=== PATIENT | female | born 1955 | race Caucasian/White ===

== ENCOUNTER 2017-09-15 06:10 | Observation (INO) | payer OTHER ==
[~2017-09-15] VITALS: Ht 170.2 cm; Wt 96.3 kg
[2017-09-15] VITALS (10 sets, daily range): BP systolic 138–214; BP diastolic 71–93; PULSE 92–111; RESP 18–24; TEMP 98.2–99.5; O2SAT 94–98
[2017-09-15] MEDS ORDERED: SODIUM CHLOR 0.9% 1000 ML INJ 1,000 ML IV SCH (07:12)
[2017-09-15] MEDS ORDERED: ONDANSETRON HCL 4 MG/2 ML VIAL IVP ONE (07:15)
[2017-09-15] MEDS ORDERED: SODIUM CHLORIDE 0.9% FLUSH 10 ML FLUSH IV FLUSH PRN ×2 (07:15→10:45)
[2017-09-15] MEDS ORDERED: ONDANSETRON HCL 4 MG/2 ML VIAL IV PUSH ONE ×2 (07:15→07:45)
[2017-09-15] MEDS ORDERED: SODIUM CHLOR 0.9% 1000 ML INJ 1,000 ML IV ONE (07:15)
[2017-09-15 07:33] LABS: AUTOMATED NEUTROPHIL # 10.2 TH/MM3 (1.8-7.7); BASOPHIL # 0.1 TH/MM3 (0-0.2); BASOPHIL % 1.3 % (0.0-2.0); EOSINOPHIL % 0.1 % (0.0-4.0); HEMATOCRIT 43.6 % (35.0-46.0); HEMO FLAGS DIFF FINAL; LYMPHOCYTE # 0.8 TH/MM3 (1.0-4.8); MEAN CELL VOLUME 90.8 FL (80.0-100.0); MEAN CORPUSCULAR HEMOGLOBIN 30.4 PG (27.0-34.0); MEAN CORPUSCULAR HGB CONC 33.4 % (32.0-36.0); MONO % 2.2 % (0.0-8.0); NEUT % 89.4 % (16.0-70.0); PLATELET COUNT 291 TH/MM3 (150-450); RED CELL DISTRIBUTION WIDTH 12.8 % (11.6-17.2); WHITE BLOOD COUNT 11.4 TH/MM3 (4.0-11.0)
[2017-09-15 07:40] LABS: CHLORIDE 101 MEQ/L (98-107); POTASSIUM 3.9 MEQ/L (3.5-5.1); SODIUM (NA) 138 MEQ/L (136-145)
[2017-09-15 07:44] LABS: ANION GAP 9 MEQ/L (5-15); BICARBONATE 27.7 MEQ/L (21.0-32.0)
[2017-09-15 07:45] LABS: BLOOD UREA NITROGEN 17 MG/DL (7-18)
--- NOTE | 2017-09-15 07:46 | PD ---
HPI Chief Complaint: Abdominal Pain Time Seen by Provider: 07:12 Travel History International Travel<30 days: No Contact w/Intl Traveler<30days: No Traveled to known affect area: No History of Present Illness HPI 62-year-old female presents with nonbloody emesis and diffuse abdominal pain. She denies recurrent history of this. She denies other sick contacts. She states her last bowel movement was last night at 11 PM when her symptoms started and was normal. She states she has not seen a physician in 10 years and her last blood pressure she remembers was in the 140s. She states her last physician and she just hasn't set one up yet. Quality is pressure. Severity is mild. Location is diffuse. She denies specific modifying factors. She denies specific migration of the pain. PFS Past Medical History Medical History: Denies Significant Hx Tetanus Vaccination: > 5 Years Influenza Vaccination: Yes ?: Not Menopausal: Yes : 0 Past Surgical History Gynecologic Surgery: Yes (BREAST IMPLANTS: 1983) Social History Alcohol Use: Yes ("GLASS OF WINE ONCE IN AWHILE") Tobacco Use: No Substance Use: No Allergies-Medications (Allergen,Severity, Reaction): Coded Allergies: Penicillins (Verified Allergy, Severe, Hives, 09/15/17) Reported Meds & Prescriptions Reported Meds & Active Scripts Active No Active Prescriptions or Reported Medications Review of Systems Except as stated in HPI: all other systems reviewed are Neg Physical Exam Narrative GENERAL: Well-nourished, well-developed patient. Well-appearing SKIN: Warm and dry. HEAD: Normocephalic and atraumatic. EYES: No injection or drainage. ENT: No nasal drainage noted. NECK: Supple, trachea midline. CARDIOVASCULAR: Regular rate and rhythm RESPIRATORY: Breath sounds equal bilaterally. No accessory muscle use. GASTROINTESTINAL: Abdomen soft, non-tender, nondistended. EXTREMITIES: No edema. BACK: Nontender without obvious deformity. NEUROLOGICAL: Awake and alert. Motor and sensory grossly within normal limits. Normal speech. Data Data Last Documented VS Vital Signs Date Time Temp Pulse Resp B/P (MAP) Pulse Ox O2 Delivery O2 Flow Rate FiO2 09/15/17 09:04 107 18 185/78 (113) 98 Room Air 09/15/17 07:32 98.2 Orders Orders Complete Blood Count With Diff (09/15/17 07:12) Comprehensive Metabolic Panel (09/15/17 07:12) Lipase (09/15/17 07:12) Urinalysis - C+S If Indicated (09/15/17 07:12) Ct Abd/Pel W Iv Contrast(Rout) (09/15/17 07:12) Iv Access Insert/Monitor (09/15/17 07:12) Ecg Monitoring (09/15/17 07:12) Oximetry (09/15/17 07:12) NPO (09/15/17 07:12) Ondansetron Inj (Zofran Inj) (09/15/17 07:15) Sodium Chlor 0.9% 1000 Ml Inj (Ns 1000 M (09/15/17 07:12) Sodium Chloride 0.9% Flush (Ns Flush) (09/15/17 07:15) Electrocardiogram (09/15/17 07:12) Ondansetron Inj (Zofran Inj) (09/15/17 07:15) Sodium Chlor 0.9% 1000 Ml Inj (Ns 1000 M (09/15/17 07:15) Ondansetron Inj (Zofran Inj) (09/15/17 07:45) Iohexol 350 Inj (Omnipaque 350 Inj) (09/15/17 08:12) Urine Culture (09/15/17 08:25) Ciprofloxacin 400 Mg Premix (Cipro 400 M (09/15/17 09:45) Metronidazole 500 Mg Inj (Flagyl 500 Mg (09/15/17 09:45) Admit Order (Ed Use Only) (09/15/17 10:33) Labs Laboratory Tests Test 09/15/17 07:25 09/15/17 08:25 White Blood Count 11.4 TH/MM3 Red Blood Count 4.80 MIL/MM3 Hemoglobin 14.6 GM/DL Hematocrit 43.6 % Mean Corpuscular Volume 90.8 FL Mean Corpuscular Hemoglobin 30.4 PG Mean Corpuscular Hemoglobin Concent 33.4 % Red Cell Distribution Width 12.8 % Platelet Count 291 TH/MM3 Mean Platelet Volume 7.7 FL Neutrophils (%) (Auto) 89.4 % Lymphocytes (%) (Auto) 7.0 % Monocytes (%) (Auto) 2.2 % Eosinophils (%) (Auto) 0.1 % Basophils (%) (Auto) 1.3 % Neutrophils # (Auto) 10.2 TH/MM3 Lymphocytes # (Auto) 0.8 TH/MM3 Monocytes # (Auto) 0.3 TH/MM3 Eosinophils # (Auto) 0.0 TH/MM3 Basophils # (Auto) 0.1 TH/MM3 CBC Comment DIFF FINAL Differential Comment Blood Urea Nitrogen 17 MG/DL Creatinine 0.74 MG/DL Random Glucose 183 MG/DL Total Protein 8.2 GM/DL Albumin 4.1 GM/DL Calcium Level 9.2 MG/DL Alkaline Phosphatase 65 U/L Aspartate Amino Transf (AST/SGOT) 16 U/L Alanine Aminotransferase (ALT/SGPT) 21 U/L Total Bilirubin 0.6 MG/DL Sodium Level 138 MEQ/L Potassium Level 3.9 MEQ/L Chloride Level 101 MEQ/L Carbon Dioxide Level 27.7 MEQ/L Anion Gap 9 MEQ/L Estimat Glomerular Filtration Rate 80 ML/MIN Lipase 129 U/L Urine Collection Type CLEAN CATCH Urine Color YELLOW Urine Turbidity SLIGHT Urine pH 6.5 Urine Specific [place] 1.010 Urine Protein NEG mg/dL Urine Glucose (UA) 100 mg/dL Urine Ketones 40 mg/dL Urine Occult Blood NEG Urine Nitrite NEG Urine Bilirubin NEG Urine Leukocyte Esterase MOD Urine RBC 0-3 /hpf Urine WBC 25-49 /hpf Urine WBC Clumps FEW Urine Squamous Epithelial Cells 6-8 /hpf Urine Bacteria OCC /hpf Microscopic Urinalysis Comment CULTURE INDICATED Urine Collection Time 08:25 [facility] Medical Decision Making Medical Screen Exam Complete: Yes Emergency Medical Condition: Yes Medical Record Reviewed: Yes (past history confirmed) Interpretation(s) EKG is sinus rhythm at [address] segment elevation or depression or consecutive T-wave inversion there is a little bit of wandering baseline which is likely from patient's emesis CBC & BMP Diagram 09/15/17 07:25 Total Protein 8.2, Albumin 4.1, Calcium Level 9.2, Alkaline Phosphatase 65, Aspartate Amino Transf (AST/SGOT) 16, Alanine Aminotransferase (ALT/SGPT) 21, Total Bilirubin 0.6 Last 24 hours Impressions Abdomen/Pelvis CT 09/15/17 0712 Signed Impressions: Service Date/Time: Friday, September 15, 2017 08:07 - CONCLUSION: 1. Acute cholecystitis. 2. Hepatic and left renal cysts. Nelson Cardenas Jr., MD Differential Diagnosis Gastroenteritis, cholecystitis, pancreatitis, UTI, kidney stone.... Narrative Course Will check blood work, urinalysis, CT scan abdominal pelvis and dose with IV fluids and Zofran and reevaluate ed workup with cholecystitis. Patient updated and will discuss with general surgery. Given ciprofloxacin and Flagyl given penicillin allergy Physician Communication Physician Communication dr roman will see patient dr roman states to admit to his service in [place] after seeing patient Diagnosis Primary Impression: Cholecystitis Additional Impression: Elevated blood pressure reading Admitting Information Admitting Physician Requests: Observation Scripts No Active Prescriptions or Reported Meds Cindy Nagel MD Sep 15, 2017 07:46
[2017-09-15 07:47] LABS: ALT (GPT) 21 U/L (10-53); AST (GOT) 16 U/L (15-37); GLOMERULAR FILTRATION RATE 80 ML/MIN (>89)
[2017-09-15 07:49] LABS: TOTAL BILIRUBIN ADULT 0.6 MG/DL (0.2-1.0)
[2017-09-15 07:50] LABS: ALKALINE PHOSPHATASE 65 U/L (45-117)
[2017-09-15] MEDS ORDERED: IOHEXOL 350 MG/ML 10 ML VIAL (for RAD DIAG) IVCONTRAST ONE (08:12)
[2017-09-15 08:31] LABS: BLOOD, URINE NEG (NEG); GLUCOSE,URINE 100 mg/dL (NEG); KETONE, URINE 40 mg/dL (NEG); NITRITE,URINE NEG (NEG); PH, URINE 6.5 (5.0-8.5)
[2017-09-15 08:38] LABS: METHOD OF COLLECTION CLEAN CATCH; URINE COLOR YELLOW (YELLW/STRAW)
[2017-09-15 08:39] LABS: BACTERIA, URINE OCC /hpf; COMMENT (UR) CULTURE INDICATED; CULTURE IF INDICATED CULTURE INDICATED; RBC, URINE 0-3 /hpf (0-3)
--- NOTE | 2017-09-15 09:08 | RADRPT ---
EXAM DATE/TIME: 09/15/2017 08:07 [facility] COMPARISON: No previous studies available for comparison. INDICATIONS : Upper abdominal pain with nausea and vomiting. IV CONTRAST: 95 cc Omnipaque 350 (iohexol) IV ORAL CONTRAST: No oral contrast ingested. RADIATION DOSE: 17.52 CTDIvol (mGy) MEDICAL HISTORY : None SURGICAL HISTORY : None. ENCOUNTER: Initial ACUITY: 2 days PAIN SCALE: 5/10 LOCATION: upper quadrant TECHNIQUE: Volumetric scanning of the abdomen and pelvis was performed. Using automated exposure control and ad justment of the mA and/or kV according to patient size, radiation dose was kept as low as reasonably achievable to obtain optimal diagnostic quality images. DICOM format image data is available electro nically for review and comparison. FINDINGS: LOWER LUNGS: A calcified granuloma is seen within the left lung base. Remaining lungs bases are clear. LIVER: Multiple hepatic cysts are observed. The largest measures 2.8 cm within the right lobe. Multiple calc ified gallstones are seen. The gallbladder wall is thickened and there is pericholecystic fluid. No i ntrahepatic biliary dilatation. Portal vein is patent. SPLEEN: Normal size without lesion. PANCREAS: Within normal limits. KIDNEYS: Normal in size and shape. There is no mass, stone or hydronephrosis. A 3.1 cm cyst involving the lef t kidney. ADRENAL GLANDS: Within normal limits. VASCULAR: There is no aortic aneurysm. BOWEL/MESENTERY: The stomach, small bowel, and colon demonstrate no acute abnormality. There is no free intraperitone al air or fluid. ABDOMINAL WALL: Within normal limits. RETROPERITONEUM: There is no lymphadenopathy. BLADDER: No wall thickening or mass. REPRODUCTIVE: Within normal limits. INGUINAL: There is no lymphadenopathy or hernia. MUSCULOSKELETAL: Within normal limits for patient age. CONCLUSION: 1. Acute cholecystitis. 2. Hepatic and left renal cysts. Nelson Cardenas Jr., MD on September 15, 2017 at 8:59 Board Certified Radiologist. This report was verified electronically.
[2017-09-15] MEDS ORDERED: metroNIDAZOLE 500 MG INJ 100 ML IV ONE (09:45)
[2017-09-15] MEDS ORDERED: CIPROFLOXACIN 400 MG PREMIX 200 ML IV ONE (09:45)
--- NOTE | 2017-09-15 10:39 | HHI.HP ---
HPI Primary Care Physician Ced Hoffman MD Admission Diagnosis cholecystitis Past Family Social History Allergies: Coded Allergies: Penicillins (Verified Allergy, Severe, Hives, 09/15/17) Active Ordered Medications Current Medications Medications (Trade) Dose Ordered Sig/Farrah Route Start Time Stop Time Status Last Admin (NS Flush) 2 ml UNSCH PRN IV FLUSH 09/15/17 07:15 09/15/17 07:29 Ciprofloxacin/ Dextrose 200 ml @ 200 mls/hr ONCE ONCE IV 09/15/17 09:45 09/15/17 10:44 09/15/17 09:57 Metronidazole 100 ml @ 100 mls/hr ONCE ONCE IV 09/15/17 09:45 09/15/17 10:44 Physical Exam Vital Signs Vital Signs Date Time Temp Pulse Resp B/P (MAP) Pulse Ox O2 Delivery O2 Flow Rate FiO2 09/15/17 09:04 107 18 185/78 (113) 98 Room Air 09/15/17 07:32 98.2 92 20 214/90 (131) 95 Room Air 09/15/17 07:15 96 Room Air 09/15/17 06:41 98.3 108 24 205/93 (130) 98 09/15/17 06:28 98.3 108 24 205/93 (130) 98 Laboratory Laboratory Tests Test 09/15/17 07:25 09/15/17 08:25 White Blood Count 11.4 Red Blood Count 4.80 Hemoglobin 14.6 Hematocrit 43.6 Mean Corpuscular Volume 90.8 Mean Corpuscular Hemoglobin 30.4 Mean Corpuscular Hemoglobin Concent 33.4 Red Cell Distribution Width 12.8 Platelet Count 291 Mean Platelet Volume 7.7 Neutrophils (%) (Auto) 89.4 Lymphocytes (%) (Auto) 7.0 Monocytes (%) (Auto) 2.2 Eosinophils (%) (Auto) 0.1 Basophils (%) (Auto) 1.3 Neutrophils # (Auto) 10.2 Lymphocytes # (Auto) 0.8 Monocytes # (Auto) 0.3 Eosinophils # (Auto) 0.0 Basophils # (Auto) 0.1 CBC Comment DIFF FINAL Differential Comment Blood Urea Nitrogen 17 Creatinine 0.74 Random Glucose 183 Total Protein 8.2 Albumin 4.1 Calcium Level 9.2 Alkaline Phosphatase 65 Aspartate Amino Transf (AST/SGOT) 16 Alanine Aminotransferase (ALT/SGPT) 21 Total Bilirubin 0.6 Sodium Level 138 Potassium Level 3.9 Chloride Level 101 Carbon Dioxide Level 27.7 Anion Gap 9 Estimat Glomerular Filtration Rate 80 Lipase 129 Urine Collection Type CLEAN CATCH Urine Color YELLOW Urine Turbidity SLIGHT Urine pH 6.5 Urine Specific [place] 1.010 Urine Protein NEG Urine Glucose (UA) 100 Urine Ketones 40 Urine Occult Blood NEG Urine Nitrite NEG Urine Bilirubin NEG Urine Leukocyte Esterase MOD Urine RBC 0-3 Urine WBC 25-49 Urine WBC Clumps FEW Urine Squamous Epithelial Cells 6-8 Urine Bacteria OCC Microscopic Urinalysis Comment CULTURE INDICATED Urine Collection Time 08:25 Date/Time Source Procedure Growth Status 09/15/17 08:25 Urine Clean Catch Urine Culture Pending Received Result Diagram: 09/15/17 0725 09/15/17 0725 Caprini VTE Risk Assessment Caprini Risk Assessment Model Point Value = 1 Point Value = 2 Point Value = 3 Point Value = 5 Age 41-60 Minor surgery BMI > 25 kg/m2 Swollen legs Varicose veins or History of unexplained or recurrent spontaneous Oral contraceptives or hormone replacement Sepsis (< 1 month) Serious lung disease, including pneumonia (< 1 month) Abnormal pulmonary function Acute myocardial infarction Congestive heart failure (< 1 month) History of inflammatory bowel disease Medical patient at bed rest Age 61-74 Arthroscopic surgery Major open surgery (> 45 min) Laparoscopic surgery (> 45 min) Malignancy Confined to bed (> 72 hours) Immobilizing plaster cast Central venous access Age >= 75 History of VTE Family history of VTE Factor V Leiden Prothrombin 29120G Lupus anticoagulant Anticardiolipin antibodies Elevated serum homocysteine Heparin-induced thrombocytopenia Other congenital or acquired thrombophilia Stroke (< 1 month) Elective arthroplasty Hip, pelvis, or leg fracture Acute spinal cord injury (< 1 month) Prophylaxis Regimen Total Risk Factor Score Risk Level Prophylaxis Regimen 0-1 Low Early ambulation 2 Moderate Order ONE of the following: *Sequential Compression Device (SCD) *Heparin 5000 units SQ BID 3-4 Higher Order ONE of the following medications: *Heparin 5000 units SQ TID *Enoxaparin/Lovenox 40 mg SQ daily (WT < 150 kg, CrCl > 30 mL/min) *Enoxaparin/Lovenox 30 mg SQ daily (WT < 150 kg, CrCl > 10-29 mL/min) *Enoxaparin/Lovenox 30 mg SQ BID (WT < 150 kg, CrCl > 30 mL/min) AND/OR *Sequential Compression Device (SCD) 5 or more Highest Order ONE of the following medications: *Heparin 5000 units SQ TID (Preferred with Epidurals) *Enoxaparin/Lovenox 40 mg SQ daily (WT < 150 kg, CrCl > 30 mL/min) *Enoxaparin/Lovenox 30 mg SQ daily (WT < 150 kg, CrCl > 10-29 mL/min) *Enoxaparin/Lovenox 30 mg SQ BID (WT < 150 kg, CrCl > 30 mL/min) AND *Sequential Compression Device (SCD) Assessment and Plan Assessment and Plan 62 yo with acute cholecystitis. Plan lap zachary tomorrow 7am. Severe untreated HTN, probably partially pain related but she has not seen physician for ten years. Kimo Dominique MD Sep 15, 2017 10:39
[2017-09-15] MEDS ORDERED: MORPHINE SULFATE 4 MG/ML INJ IV PUSH PRN ×2 (10:45)
[2017-09-15] MEDS ORDERED: ONDANSETRON HCL 4 MG/2 ML VIAL IV PUSH PRN (10:45)
--- NOTE | 2017-09-15 11:36 | MH ---
cc: YESSICA ZAVALA MD DATE OF ADMISSION 09/15/2017 CHIEF COMPLAINT Abdominal pain HISTORY OF PRESENT ILLNESS This is a 62-year-old female who developed severe upper abdominal discomfort diffusely last night. She had nausea and belching and also emesis. She has not specifically had this pain in the past, but says she has had some issues with indigestion recently. She has not seen a physician in 10 years and her blood pressure is quite elevated. PAST MEDICAL HISTORY None PAST SURGICAL HISTORY Breast implants ALLERGIES PENICILLIN SOCIAL HISTORY Occasional wine. No tobacco or drug use. FAMILY HISTORY Noncontributory REVIEW OF SYSTEMS A 10-point review of systems negative except as mentioned in the HPI. PHYSICAL EXAMINATION GENERAL: An overweight female, alert and oriented in no distress. VITALS: Temperature 98.2, heart rate 88, respirations 18, blood pressure 176/81. HEAD: Normocephalic, atraumatic. EYES: Pupils equal, reactive to light bilaterally. No scleral icterus. ENT: Moist oral mucosa. LUNGS: Clear to auscultation bilaterally. No wheezing or rhonchi. CARDIOVASCULAR: Sinus tachycardia. ABDOMEN: Soft, nondistended. Moderate right upper quadrant tenderness to palpation. Negative Bolton's sign. EXTREMITIES: No cyanosis or edema. SKIN: Warm, dry and non-jaundiced. LABORATORY DATA White blood count 11. LFTs normal. IMAGING STUDIES CT of the abdomen and pelvis shows acute cholecystitis. ASSESSMENT/PLAN This is a 62-year-old female with 12 hours of upper abdominal pain and an evaluation consistent with acute cholecystitis. She is also significantly hypertensive. I have recommended laparoscopic cholecystectomy, possible open possible intraoperative cholangiogram. 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 Also, we will consult the hospitalist for her uncontrolled untreated hypertension. MD EZEQUIEL Aviles/LESLEY /11:19 AM /11:27 AM
[2017-09-15] MEDS: D5-1/2 NS + KCL 20 MEQ INJ 1,000 ML IV SCH ×2 (13:51→20:35)
[2017-09-15] MEDS ORDERED: ENALAPRILAT 1.25 MG/ML VIAL IV PUSH PRN (14:15)
--- NOTE | 2017-09-15 16:37 | EKG ---
Date Performed: 09/15/2017 Time Performed: 07:19:11 PTAGE: 62 years EKG: Sinus rhythm POSSIBLE LEFT ATRIAL ENLARGEMENT BORDERLINE ECG NO PREVIOUS TRACING DOCTOR: Franklin Carter Interpretating Date/Time 09/15/2017 16:36:33
[2017-09-15] MEDS: LISINOPRIL 5 MG TAB PO SCH (18:20)
--- NOTE | 2017-09-15 19:36 | MB ---
cc: VINNY TOPETE DATE OF CONSULTATION: 09/15/2017 REASON FOR CONSULTATION: Hypertension. REQUESTING PHYSICIAN Dr. Kimo Dominique HISTORY OF PRESENT ILLNESS: The patient is a 52 year-old female who presented to the emergency room with nausea and vomiting of one evening's duration. She said this had been preceded by episodes of reflux and some abdominal discomfort across her upper abdomen. In the emergency room, imaging studies were done showing gallbladder wall thickening with pericholecystic fluid. The patient was admitted by surgery and is to undergo cholecystectomy laparoscopically in the morning for acute cholecystitis. When she presented to the emergency room her blood pressure was 205/93, documented at triage with a pulse of 108. Subsequently her blood pressure remained elevated until approximately mid morning when she settled out on the floor and her blood pressure came down to 146/79. She did not receive any antihypertensives during this period of time. She tells me that she has never had a history of hypertension. Her blood pressure has always been as she knows in the 140s. She last saw her physician ten years ago. At that time when she would go into her doctor's office, her blood pressure would be mildly elevated and her heart rate would sometimes be a little elevated as well, but after sitting down and calming herself, it invariably came down. She does tell me she is anxious when she thinks about the surgery but she tries not to stop and think about it too much. She knows that it needs to be done. PAST MEDICAL HISTORY: Unremarkable. PAST SURGICAL HISTORY: Breast implants. ALLERGIES PENICILLIN. It causes a rash. MEDICATIONS: She really does not take any medications. HABITS: She will occasionally have a rare glass of wine. She does not smoke. SOCIAL HISTORY: She is retired. She is . She and her moved down from [place] ten years ago. REVIEW OF SYSTEMS She denies any chest pain, palpitations, no headaches. Presently her abdominal discomfort is improved. She has not had any more nausea or emesis. She has had no diarrhea. She is voiding well. She denies any edema but she does say that her ankles and legs have always been somewhat thick. LABORATORY DATA: White count 11.4, hemoglobin 14.6, hematocrit of 43.6. Platelet count of 291. Sodium was 138, potassium 3.9, BUN 17, creatinine 0.74, GFR was 80, random glucose was 183. LFTs were normal as well as her lipase. Her urine was significant for glucose and ketones. She does have moderate leukocyte esterase with occasional bacteria. Culture is pending. CT scan showed acute cholecystitis with hepatic and left renal cyst. EKG: Sinus rhythm with possible left atrial enlargement. ASSESSMENT/PLAN: The patient is a 62 year-old female who presented to the hospital with acute cholecystitis, undergoing surgery tomorrow currently. Hemodynamically she is stable. Her blood pressure was elevated on presentation, has subsequently come down, as she has become more comfortable. Her last blood pressure was 151/77. At this point I have ordered some p.r.n. Vasotec. I will put her on a low dose of lisinopril. Continue to monitor her blood pressure. For her UTI, she has been started on antibiotics already and she is on Cipro, metronidazole as well. Will await her cultures. She did have some glucose in her urine. I will go ahead and repeat her BMP fasting in the morning, and actually check a hemoglobin A1c. She will need to establish with a primary care physician once she is discharged from the hospital. MD MILLIE Cruz/KOKO /6:23 PM /7:10 PM
[2017-09-15] MEDS: metroNIDAZOLE 500 MG INJ 100 ML IV SCH (20:45)
[2017-09-15] MEDS: SODIUM CHLORIDE 0.9% FLUSH 10 ML FLUSH IV FLUSH SCH (20:50)
[2017-09-15 21:59] LABS: HEMOGLOBIN A1a 0.9 %; HEMOGLOBIN A1b 0.8 %; HEMOGLOBIN Ao 85.5 %; HEMOGLOBIN F 0.9 %; HEMOGLOBIN LA1C 2.3 %; HEMOGLOBIN P3 3.8 %
[2017-09-15] MEDS ORDERED: CIPROFLOXACIN 400 MG PREMIX 200 ML IV SCH (22:00)
[2017-09-16] VITALS: BP 133/66; PULSE 100; RESP 18; TEMP 98.3; O2SAT 97
[2017-09-16] MEDS: D5-1/2 NS + KCL 20 MEQ INJ 1,000 ML IV SCH (03:45)
[2017-09-16] MEDS: metroNIDAZOLE 500 MG INJ 100 ML IV SCH (03:45)
[2017-09-16] MEDS ORDERED: BUPIVACAINE/EPINEPHRINE 0.5% 50 ML VIAL ONE (06:13)
[2017-09-16 06:20] VITALS: BP 127/60; PULSE 101; RESP 18; TEMP 98.6; O2SAT 96
[2017-09-16 06:44] LABS: POTASSIUM 3.5 MEQ/L (3.5-5.1)
[2017-09-16] MEDS ORDERED: POVIDONE IODINE 5% (ANTISEPSIS KIT) 4 APPLICATIONS EACH NARE PRN (06:45)
[2017-09-16] MEDS ORDERED: METOPROLOL TARTRATE 25 MG TAB PO PRN (06:45)
[2017-09-16] MEDS ORDERED: LACTATED RINGER'S 1000 ML IV PRN (06:45)
[2017-09-16] MEDS ORDERED: INSULIN HUMAN REGULAR 1,000 UNITS/10 ML VIAL SQ PRN (06:45)
[2017-09-16] MEDS ORDERED: SODIUM CHLORID 0.9% 500 ML IV PRN (06:45)
[2017-09-16] MEDS ORDERED: CHLORHEXIDINE GLUCONATE 2 % 1 PACK (2 CLOTHS) TOPICAL PRN (06:45)
[2017-09-16] MEDS ORDERED: MIDAZOLAM HCL 2 MG/2 ML VIAL ONE (06:50)
[2017-09-16] MEDS ORDERED: FAMOTIDINE 20 MG/2 ML VIAL ONE (06:50)
[2017-09-16] MEDS ORDERED: ACETAMINOPHEN 1000 MG/100 ML 100 ML IV ONE (06:50)
[2017-09-16 07:12] LABS: BICARBONATE 27.7 MEQ/L (21.0-32.0)
[2017-09-16] MEDS ORDERED: ACETAMINOPHEN/HYDROcodone 325 MG/5 MG TAB PO PRN ×2 (08:15)
--- NOTE | 2017-09-16 08:20 | PD.OP ---
cc: Kimo Dominique MD; Ced Hoffman MD Operative Report Date of Surgery: Sep 16, 2017 Preoperative Diagnosis: (1) Acute cholecystitis Postoperative Diagnosis: (1) Acute cholecystitis Procedure: Laparoscopic cholecystectomy Anesthesia: GETA Surgeon: Kimo Dominique [employer] Coordinator(s): Staff Operation and Findings: Complications: None apparent EBL:10cc Operative findings: Distended inflamed gallbladder with thickened wall. Procedure in detail: The patient was taken to the operating room and placed in the supine position. General endotracheal anesthesia was induced. The abdomen was prepped and draped in usual sterile fashion and a surgical timeout was performed to verify correct patient procedure and site. Appropriate perioperative antibiotics were administered. Local anesthetic was injected in the skin and subcutaneous tissue superior to the umbilicus and a 5 mm incision performed. The abdomen was entered using the Optiview 5 mm trocar with direct laparoscopic visualization. The abdomen was then insufflated to 15 mmHg with CO2 gas which the patient tolerated well. Next a 12 mm port was placed in the epigastrium and two 5 mm ports in the right upper quadrant and right lateral abdomen. The patient was placed in reverse Trendelenburg position and turned slightly to the left. Attention was turned to the right upper quadrant and the dome of the gallbladder was grasped and retracted cephalad. The gallbladder was tense and distended and inflamed and required decompression with about 20 cc of dark bile removed. The infundibulum was retracted laterally to expose Calot's triangle. Blunt dissection and judicious use of electrocautery was used to expose the cystic duct and the cystic artery directly entering the gallbladder. Two clips were placed proximally on each of these structures and one distally and they were transected. The gallbladder was then removed from the liver bed using electrocautery. Hemostasis was achieved. The gallbladder was then removed from the abdomen using an Endo Catch bag. The clips were in place on the cystic duct and cystic artery stumps with no bleeding or bile leakage. At this point, the abdomen was allowed to desufflate and trochars were removed. The fascia at the 12 mm port site was closed with 0 Vicryl suture. Skin was closed with subcuticular 4-0 Monocryl as well as Dermabond. The patient tolerated the procedure well and was extubated and taken to PACU in stable condition. All sponge and instrument counts were correct. Kimo Dominique MD Sep 16, 2017 08:20
[2017-09-16] MEDS ORDERED: HYDR-3516 PO (08:22)
[2017-09-16 09:40] VITALS: BP 169/73; PULSE 81; RESP 16; TEMP 97.9; O2SAT 95
[2017-09-16] MEDS ORDERED: INFLUENZA VIRUS VACCINE (QUADRIVALENT) 0.5 ML SYR IM ONE (10:00)
[2017-09-16] MEDS ORDERED: fentaNYL CITRATE 250 MCG/5 ML AMP ONE (10:06)
[2017-09-16] MEDS: LISINOPRIL 5 MG TAB PO SCH (10:35)
[2017-09-16] MEDS: SODIUM CHLORIDE 0.9% FLUSH 10 ML FLUSH IV FLUSH SCH (10:41)
[2017-09-16] MEDS ORDERED: NEOSTIGMINE METHYLSULFATE 10 MG/10 ML VIAL IV PUSH ONE (11:20)
[2017-09-16] MEDS ORDERED: ONDANSETRON HCL 4 MG/2 ML VIAL IV PUSH ONE (11:20)
[2017-09-16] MEDS ORDERED: PHENYLEPH/NS 1000 MCG/10 ML SYR IV ONE (11:20)
[2017-09-16] MEDS ORDERED: PROPOFOL 200 MG/20 ML AMP IV ONE (11:20)
--- NOTE | 2017-09-16 11:39 | HHI.PR ---
Subjective Remarks Post op only a little sore, thinks elevated blood pressure is due to anxiety but willing to take low dose antihypertensive. Objective Vitals Vital Signs Date Time Temp Pulse Resp B/P (MAP) Pulse Ox O2 Delivery O2 Flow Rate FiO2 09/16/17 09:40 97.9 81 16 169/73 (105) 95 09/16/17 08:55 98.5 72 16 135/61 (85) 97 Room Air 09/16/17 08:40 74 15 112/48 (69) 93 Nasal Cannula 3 09/16/17 08:25 98.6 78 14 111/44 (66) 95 Room Air 09/16/17 06:20 98.6 101 18 127/60 (82) 96 09/16/17 00:00 98.3 100 18 133/66 (88) 97 09/15/17 20:00 98.7 98 18 138/71 (93) 96 09/15/17 16:00 98.6 108 20 151/77 (101) 94 09/15/17 12:00 99.5 111 20 146/79 (101) 96 09/16/17 09/16/17 09/17/17 15:00 23:00 07:00 Intake Total 600 ml Balance 600 ml IV Total 600 ml Result Diagram: 09/15/17 0725 09/16/17 0530 Objective Remarks Lying in bed dosing arousable. CTA anteriorly RRR +BS, laparoscopic incisions closed SCDs A/P Problem List: (1) Cholecystitis ICD Codes: K81.9 - Cholecystitis, unspecified Status: Resolved Plan: S/P laparoscopic cholecystectomy. Once tolerating po can be discharged home today per surgery. (2) Elevated blood pressure reading ICD Codes: R03.0 - Elevated blood-pressure reading, without diagnosis of hypertension Status: Acute Plan: started on low dose lisinopril. She has not seen an MD in 10 yrs. I think her blood pressure elevations have been more related to pain and anxiety but she seems to tolerate the low dose ava. She has agreed to continue until she establishes with her new MD. Discharge Planning OK to discharge from my standpoint with follow up with her new primary to establish. Indy Vagras MD Sep 16, 2017 11:39
[2017-09-16] MEDS ORDERED: LISI-519 PO (11:40)
[2017-09-16 13:00] VITALS: BP 140/72; PULSE 72; RESP 16; TEMP 97.5; O2SAT 95
[2017-09-17] MEDS ORDERED: PNEUMOCOCCAL POLYVALENT INJ 25 MCG/0.5 ML SYR IM ONE (10:00)
== END 2017-09-16 16:11 | disposition home or self-care (01) ==
LOC: PHED 06:10 → PHEDA 10:33 → PH3A 11:15
PROVIDERS: ADMIT Surgery; ATTEND Surgery
DX: K80.12 Calculus of gallbladder with acute and chronic cholecystitis without obstruction (principal); Z23 Encounter for immunization; R03.0 Elevated blood-pressure reading, without diagnosis of hypertension; N39.0 Urinary tract infection, site not specified; A49.01 Methicillin susceptible Staphylococcus aureus infection, unspecified site; F41.9 Anxiety disorder, unspecified; N28.1 Cyst of kidney, acquired
CPT/HCPCS: 00790; 47562; 74177; 80048; 80053; 81001; 83036; 83690; 85025; 86403; 87086; 87147; 87186; 88304; 90732; 93005; 96361; 96365; 96366; 96367; 96368; 96372; 96375; 96376; 99285; G0008; G0009; G0378; J0131; J0744; J2250; J2370; J2405; J2710; J3010; J3480; J7030; J7120; Q2038; Q9967; 90471; 90686

== ENCOUNTER → 2017-12-31 | Day surgery (SDC) | payer OTHER ==
[~2017-12-31] VITALS: Ht 167.6 cm; Wt 73.0 kg
[~2017-12-31] MED LIST: AMLO5TAB2 PO; CHLORHEXIDINE GLUCONATE 2 % 1 PACK (2 CLOTHS) TOPICAL PRN; HYALURONIDASE/LIDOCAINE/BUPIVACAINE 5 ML SYR LEFT EYE ONE; HYDR-3516 PO; LACTATED RINGER'S 1000 ML IV PRN; LIDOCAINE HCL 1% PF 30 ML VIAL ONE; LISI-515 PO; LISI-519 PO; METOPROLOL TARTRATE 25 MG TAB PO PRN; POVIDONE IODINE 5% (ANTISEPSIS KIT) 4 APPLICATIONS EACH NARE PRN; PROPARACAINE HCL 0.5% OPHT SOLN 15 ML BTL LEFT EYE ONE; PROPOFOL 200 MG/20 ML AMP ONE; SODIUM CHLORID 0.9% 500 ML IV PRN; TOBRAMYCIN/DEXAMETHASONE OPTH OINT 3.5 GM TUBE ONE; VITA1000 PO
[2017-12-31] MEDS: CYCLOPENTOLATE HCL 1% OPHT SOLN 2 ML BTL LEFT EYE SCH ×4 (08:15→08:30)
[2017-12-31] MEDS: PHENYLEPHRINE HCL 10% OPTH SOLN 5 ML BTL LEFT EYE SCH ×4 (08:15→08:30)
[2017-12-31] MEDS: FLURBIPROFEN 0.03% OPHT SOLN 2.5 ML BTL LEFT EYE SCH ×4 (08:15→08:30)
[2017-12-31] MEDS: TROPICAMIDE 1% OPHT SOLN 15 ML BTL LEFT EYE SCH ×4 (08:15→08:30)
[2017-12-31 08:40] VITALS: PULSE 92
[2017-12-31 11:00] VITALS: BP 135/69; PULSE 88; RESP 16; TEMP 97.9; O2SAT 99
--- NOTE | 2018-01-01 11:59 | MP ---
cc: HERNANDEZ JONES M.D. [facility] NUMBER: [id number] DATE OF SURGERY: 12/31/2017 PREOPERATIVE DIAGNOSIS: Visually significant cataract left eye. POSTOPERATIVE DIAGNOSIS: Visually significant cataract left eye. OPERATION: Phacoemulsification with posterior chamber lens implantation, left eye. SURGEON: Hernandez Jones MD ANESTHESIA: Retrobulbar with MAC. COMPLICATIONS: None. PROCEDURE: After informed consent was obtained, the patient was brought into the operative suite and placed on appropriate monitors by the Anesthesia Service. The patient had received a prior retrobulbar injection of local anesthetic by the Anesthesia Service in the holding area. The patient's operative eye was then prepped and draped in the usual sterile fashion. A wire lid speculum was placed. A paracentesis incision was made in the peripheral cornea with a 1 mm jonathan keratome. The anterior chamber was filled with viscoelastic. The anterior chamber was then entered through a stepped, clear corneal incision using a sharp 3 mm jonathan keratome. A circular tear capsulorrhexis was then made with a bent needle cystitome. Following hydrodissection of the lens nucleus with balanced saline, phaco-emulsification of the nucleus was performed using a modified chopping technique. The remaining cortex was removed with irrigation/aspiration. The prior two procedures were both performed using the handpieces of the [employer] phaco unit. The capsular bag was then filled with viscoelastic. The intraocular lens was then injected into the capsular bag and positioned. The type of intraocular lens and its power can be found elsewhere in this chart. The remaining viscoelastic was then removed from the anterior chamber with the IA handpiece. The anterior chamber was reformed with balanced saline. The wound was then closed securely with stromal hydration. It was found to be watertight to an intraocular pressure of at least 30 mmHg by palpation. A small amount of balanced salt solution was then removed through the paracentesis site and the intraocular pressure at the end of the case was approximately 20 by palpation. All drapes were then removed. TobraDex ointment was then placed in the eye, which was closed beneath a semi-pressure patch dressing. The patient tolerated this procedure well and left the operating room awake and alert. The patient is to follow-up in my office in the morning. MD Libby Huerta /11:26 AM /11:36 AM
== END | disposition home or self-care (01) ==
LOC: PHSDC 07:14
PROVIDERS: ATTEND Optometrist Occupational Vision
DX: H25.812 Combined forms of age-related cataract, left eye (principal)
CPT/HCPCS: 00142; 66984; J7040; V2632

== ENCOUNTER → 2018-01-28 | Day surgery (SDC) | payer OTHER ==
[~2018-01-28] VITALS: Ht 167.6 cm; Wt 72.5 kg
[~2018-01-28] MED LIST changes: -HYALURONIDASE/LIDOCAINE/BUPIVACAINE 5 ML SYR LEFT EYE ONE; +HYALURONIDASE/LIDOCAINE/BUPIVACAINE 5 ML SYR RIGHT EYE ONE; -HYDR-3516 PO; -LISI-519 PO; -PROPARACAINE HCL 0.5% OPHT SOLN 15 ML BTL LEFT EYE ONE; +PROPARACAINE HCL 0.5% OPHT SOLN 15 ML BTL RIGHT EYE ONE
[2018-01-28 07:50] VITALS: PULSE 107
[2018-01-28] MEDS: TROPICAMIDE 1% OPHT SOLN 15 ML BTL RIGHT EYE SCH ×4 (07:50→08:05)
[2018-01-28] MEDS: CYCLOPENTOLATE HCL 1% OPHT SOLN 2 ML BTL RIGHT EYE SCH ×4 (07:50→08:05)
[2018-01-28] MEDS: FLURBIPROFEN 0.03% OPHT SOLN 2.5 ML BTL RIGHT EYE SCH ×4 (07:50→08:05)
[2018-01-28] MEDS: PHENYLEPHRINE HCL 10% OPTH SOLN 5 ML BTL RIGHT EYE SCH ×4 (07:50→08:05)
[2018-01-28 08:11] VITALS: PULSE 88
[2018-01-28 09:23] VITALS: TEMP 98.2
[2018-01-28 09:37] VITALS: BP 134/74; PULSE 98; RESP 16; O2SAT 98
--- NOTE | 2018-01-28 10:13 | MP ---
cc: Hernandez Tran MD DATE OF OPERATION: 01/28/2018 (retrobulbar template) Right eye ADDENDUM: Due to the patient's very cloudy cataract, VisionBlue was used to stain the anterior capsule prior to capsulorrhexis. Hernandez Horn. MD Marc TCG/TI , 09:57 AM , 10:12 AM
--- NOTE | 2018-02-01 12:22 | MP ---
cc: Hernandez Tran MD DATE OF OPERATION: 01/28/2018 [facility] #: [id number] PREOPERATIVE DIAGNOSIS: Visually significant cataract right eye. POSTOPERATIVE DIAGNOSIS: Visually significant cataract right eye. OPERATION: Phacoemulsification with posterior chamber lens implantation, right eye. SURGEON: Hernandez Tran MD ANESTHESIA: Retrobulbar with MAC. COMPLICATIONS: None. DESCRIPTION OF THE PROCEDURE IN DETAIL. After informed consent was obtained, the patient was brought into the operative suite and placed on appropriate monitors by the Anesthesia Service. The patient had received a prior retrobulbar injection of local anesthetic by the Anesthesia Service in the holding area. The patient's operative eye was then prepped and draped in the usual sterile fashion. A wire lid speculum was placed. A paracentesis incision was made in the peripheral cornea with a 1 mm jonathan keratome. The anterior chamber was filled with viscoelastic. The anterior chamber was then entered through a stepped, clear corneal incision using a sharp 3 mm jonathan keratome. A circular tear capsulorrhexis was then made with a bent needle cystitome. Following hydrodissection of the lens nucleus with balanced saline, phaco-emulsification of the nucleus was performed using a modified chopping technique. The remaining cortex was removed with irrigation/aspiration. The prior two procedures were both performed using the handpieces of the [employer] phaco unit. The capsular bag was then filled with viscoelastic. The intraocular lens was then injected into the capsular bag and positioned. The type of intraocular lens and its power can be found elsewhere in this chart. The remaining viscoelastic was then removed from the anterior chamber with the IA handpiece. The anterior chamber was reformed with balanced saline. The wound was then closed securely with stromal hydration. It was found to be watertight to an intraocular pressure of at least 30 mmHg by palpation. A small amount of balanced salt solution was then removed through the paracentesis site and the intraocular pressure at the end of the case was approximately 20 by palpation. All drapes were then removed. TobraDex ointment was then placed in the eye, which was closed beneath a semi-pressure patch dressing. The patient tolerated this procedure well and left the operating room awake and alert. The patient is to follow-up in my office in the morning. ADDENDUM: Due to the patient's very cloudy cataract, vision blue was used to stain the anterior capsule prior to capsulorrhexis. MD DOMINIC Huerta/britany , 12:56 PM , 05:56 PM
== END | disposition home or self-care (01) ==
LOC: PHSDC 06:43
PROVIDERS: ATTEND Optometrist Occupational Vision
DX: H25.811 Combined forms of age-related cataract, right eye (principal)
CPT/HCPCS: 00142; 66984; J7040; V2632